=== PATIENT | male | born 1985 | race Caucasian/White ===

== ENCOUNTER 2017-01-25 04:21 | Emergency (ER) | payer MEDICAID ==
[~2017-01-25] VITALS: Ht 177.8 cm; Wt 61.6 kg
[~2017-01-25 04:21] MED LIST: AMOX1TAB61 PO
[2017-01-25 04:22] VITALS: BP 134/73
[2017-01-25] MEDS ORDERED: HYDROcodone/APAP 5/325 TABLET ONE (04:44)
[2017-01-25] MEDS ORDERED: HYDROcodone/APAP 5/325 TABLET PO ONE (05:00)
[2017-01-25] MEDS ORDERED: ONDANSETRON ODT 4 MG ONE (05:43)
[2017-01-25] MEDS ORDERED: ONDANSETRON ODT 4 MG PO ONE (06:00)
== END 2017-01-25 06:39 | disposition home or self-care (01) ==
LOC: ED 06:29
DX: S16.1XXA Strain of muscle, fascia and tendon at neck level, initial encounter (principal); S00.03XA Contusion of scalp, initial encounter; S50.02XA Contusion of left elbow, initial encounter; S50.01XA Contusion of right elbow, initial encounter; S00.83XA Contusion of other part of head, initial encounter; H11.32 Conjunctival hemorrhage, left eye; Y04.0XXA Assault by unarmed brawl or fight, initial encounter
CPT/HCPCS: 12001; 70450; 72125; 73090; 73110; 99284; Q0162

== ENCOUNTER 2017-06-22 11:15 | Emergency (ER) | payer MEDICAID ==
[~2017-06-22] VITALS: Ht 175.3 cm; Wt 63.7 kg
[2017-06-22] MEDS ORDERED: SODIUM CHLORIDE 0.9% 1,000 ML IV ONE (11:40)
[2017-06-22] MEDS ORDERED: CAPSAICIN CRM 0.075%, 60GM TP ONE (12:00)
[2017-06-22] MEDS ORDERED: ONDANSETRON 2MG/ML, 2ML IVPush ONE (12:00)
[2017-06-22] MEDS ORDERED: SODIUM CHLORIDE 0.9% 1,000ML IVBOLUS ONE (12:00)
[2017-06-22] MEDS ORDERED: ZIPRASIDONE 20 MG INJ IM ONE ×2 (12:00→12:11)
[2017-06-22 12:03] LABS: BASOPHILS # (AUTO) 0.07 x10^3/uL (0-0.1); BASOPHILS % (AUTO) 1 % (0-1); EOSINOPHILS # (AUTO) 0.18 x10^3/uL (0-0.4); EOSINOPHILS % (AUTO) 2 % (1-7); LYMPHOCYTES # (AUTO) 2.18 x10^3/uL (1-3.4); LYMPHOCYTES % (AUTO) 21 % (22-44); MD NO; MEAN CORPUSCULAR HEMOGLOBIN 30.6 pg (27.5-34.5); MEAN CORPUSCULAR HGB CONC 33.8 g/dL (33.2-36.2); MEAN CORPUSCULAR VOLUME 90.5 fL (81-97); MEAN PLATELET VOLUME 8.4 fL (7.4-10.4); MONOCYTES # (AUTO) 0.75 x10^3/uL (0.2-0.8); MONOCYTES % (AUTO) 7 % (2-9); NEUTROPHILS # (AUTO) 7.36 x10^3/uL (1.8-6.8); NEUTROPHILS % (AUTO) 70 % (42-75); PLATELET COUNT 245 x10^3/uL (130-400); RED CELL DISTRIBUTION WIDTH 14.6 % (9.4-14.8)
[2017-06-22] MEDS ORDERED: ONDANSETRON 2MG/ML, 2ML ONE (12:11)
[2017-06-22 12:24] LABS: ALBUMIN 3.4 g/dL (3.4-5.0); ANION GAP 6 mmol/L (5-15); CHLORIDE 106 mmol/L (98-107)
[2017-06-22 12:28] LABS: ALANINE AMINOTRANSFERASE 24 U/L (12-78); ALKALINE PHOSPHATASE 49 U/L (45-117); BILIRUBIN,TOTAL 0.7 mg/dL (0.2-1.0); CREATININE 0.99 mg/dL (0.7-1.3); TOTAL PROTEIN 6.5 g/dL (6.4-8.2)
[2017-06-22] MEDS ORDERED: CAPSAICIN CRM 0.025%, 60GM TP ONE (13:00)
[2017-06-22 13:11] VITALS: BP 116/74
== END 2017-06-22 14:12 | disposition home or self-care (01) ==
LOC: ED 13:33
DX: R11.2 Nausea with vomiting, unspecified (principal)
CPT/HCPCS: 36415; 74022; 80053; 83690; 85025; 96361; 96374; 99285; J2405; J7030

== ENCOUNTER 2018-05-28 14:42 | Emergency (ER) | payer MEDICAID ==
[~2018-05-28] VITALS: Ht 175.3 cm; Wt 67.0 kg
[2018-05-28 14:47] VITALS: BP 141/83
[2018-05-28] MEDS ORDERED: LIDOCAINE 1%, 10ML INFIL ONE (15:00)
== END 2018-05-28 16:06 | disposition home or self-care (01) ==
LOC: ED 15:35
DX: K02.9 Dental caries, unspecified (principal); K04.7 Periapical abscess without sinus; Z72.9 Problem related to lifestyle, unspecified; Z90.81 Acquired absence of spleen
CPT/HCPCS: 99283

== ENCOUNTER 2020-11-02 16:24 | Emergency (ER) | payer MEDICAID ==
--- NOTE | 2020-11-02 16:46 | NUR ---
PT CALLED INTO TRIAGE WITH [employer]ER PLAYING, RN ASKED PT TO TURN DEVICE OFF WHILE IN TRIAGE, PT BEGAN YELLING "I NEED HELP, YOU PEOPLE ARE HERE TO PROVIDE ME CARE! MY PHONE AND MP3 PLAYER DOESN'T HAVE ANYTHING TO DO WITH TAKING CARE OF ME!" PT ASKED TO LOWER VOICE & PT BEGAN CALLING RN A BITCH. PT TOLD SECURITY WILL BE CALLED IF HE DIDN'T STOP YELLING AND BEING VERBALLY ABUSIVE. PT STATED "I DON'T CARE!" AND CONTINUED YELLING & CALLING RN A BITCH. PT ASKED TO LEAVE BUT PT SAID SECURITY WOULD HAVE TO MAKE HIM LEAVE. SECURITY CALLED AND PT ESCORTED OUT OF FACILITY. RELIEF CHARGE AWARE.
== END 2020-11-02 21:08 | disposition left against medical advice (07) ==
LOC: ED 17:55
DX: R07.89 Other chest pain (principal); R51.9 Headache, unspecified